=== PATIENT | female | born 1935 | race Caucasian/White ===

== ENCOUNTER 2017-04-08 13:53 | Inpatient (IN) | payer OTHER, MEDICARE ==
[2017-04-08 14:04] VITALS: BMI 20.1
--- NOTE | 2017-04-08 14:28 | PDOC ---
Attending Attestation - Resident Resident Name: Christina Boothe - ED Attending Attestation I have performed the following: I have examined & evaluated the patient, The case was reviewed & discussed with the resident, I agree w/resident's findings & plan, Exceptions are as noted
[2017-04-08] MEDS ORDERED: ACETAMINOPHEN 325 MG TABLET (FP) PO ONE (14:29)
--- NOTE | 2017-04-08 14:37 | PDOC ---
History of Present Illness - General History Source: Patient Exam Limitations: No Limitations - History of Present Illness Initial Comments: 04/08/17 15:00 The patient is a 82 year old female, with a significant past medical history of hypertension and hyperlipidemia, who presents to the emergency department s/p mechanical fall earlier today. As per family who witnessed fall, patient lost her footing and fell to the ground. Patient endorses immediate left leg pain, and inability to walk or stand on her own. Patient reports her pain is exacerbated when bearing weight on her left leg/ She denies any head trauma, LOC , headache, changes in vision, dizziness, or lightheadedness. She denies any chest pain, shortness of breath, diaphoresis, or palpitations. She denies any fever or chills. She denies any abdominal pain, nausea, vomiting, or changes in bowel/bladder habits. No recent travel or sick contacts. Allergies: NKDA Past Surgical History: None reported Social History: Non smoker. No ETOH or recreational drug use. PCP: Dr. Lees <Carlos Manuel Morocho - Last Filed: 04/08/17 15:00> <Beatriz Pond - Last Filed: 04/10/17 07:28> - General Chief Complaint: Injury Stated Complaint: FALL Time Seen by Provider: 04/08/17 14:04 Past History <Carlos Manuel Morocho - Last Filed: 04/08/17 15:00> - Past Medical History CVA: No COPD: No DVT: No Dementia: Yes HTN: Yes Hypercholesterolemia: Yes - Immunization History Immunization Up to Date: Yes - Suicide/Smoking/Psychosocial Hx Smoking History: Never smoked Information on smoking cessation initiated: No Hx Alcohol Use: No Drug/Substance Use Hx: No Substance Use Type: None <Beatriz Pond - Last Filed: 04/10/17 07:28> - Past Medical History Allergies/Adverse Reactions: Allergies Allergy/AdvReac Type Severity Reaction Status Date / Time No Known Allergies Allergy Verified 04/08/17 14:04 Home Medications: Ambulatory Orders Aspirin [ASA -] 81 mg PO DAILY 01/28/15 Atorvastatin Ca [Lipitor -] 20 mg PO HS 01/28/15 Donepezil HCl [Aricept -] 10 mg PO DAILY 01/28/15 Ramipril [Altace] 2.5 mg PO DAILY 01/28/15 Review of Systems - Review of Systems Able to Perform ROS?: Yes Comments:: 04/08/17 15:01 GENERAL/CONSTITUTIONAL: No fever or chills. No weakness. HEAD, EYES, EARS, NOSE AND THROAT: No change in vision. No ear pain or discharge. No sore throat. CARDIOVASCULAR: No chest pain or shortness of breath. RESPIRATORY: No cough, wheezing, or hemoptysis. GASTROINTESTINAL: No nausea, vomiting, diarrhea or constipation. GENITOURINARY: No dysuria, frequency, or change in urination. MUSCULOSKELETAL: +Left leg pain. No joint or muscle swelling. No neck or back pain. SKIN: No rash NEUROLOGIC: +Difficulty ambulating. No headache, vertigo, loss of consciousness. ENDOCRINE: No increased thirst. No abnormal weight change. HEMATOLOGIC/LYMPHATIC: No anemia, easy bleeding, or history of blood clots. ALLERGIC/IMMUNOLOGIC: No hives or skin allergy. <Carlos Manuel Morocho - Last Filed: 04/08/17 15:00> *Physical Exam - Vital Signs Last Vital Signs Temp Pulse Resp BP Pulse Ox 97.9 F 75 19 158/86 98 04/08/17 14:01 04/08/17 14:01 04/08/17 14:01 04/08/17 14:01 04/08/17 14:01 <Carlos Manuel Morocho - Last Filed: 04/08/17 15:00> - Vital Signs Last Vital Signs Temp Pulse Resp BP Pulse Ox 97.9 F 75 19 158/86 98 04/08/17 14:01 04/08/17 14:01 04/08/17 14:01 04/08/17 14:01 04/08/17 14:01 - Physical Exam Comments: GENERAL: Awake, alert, and fully oriented, in no acute distress HEAD: No signs of trauma EYES: PERRLA, EOMI, sclera anicteric, conjunctiva clear ENT: Auricles normal inspection, hearing grossly normal, nares patent, oropharynx clear without exudates. Moist mucosa NECK: Normal ROM, supple, no lymphadenopathy, JVD, or masses LUNGS: Breath sounds equal, clear to auscultation bilaterally. No wheezes, and no crackles HEART: Regular rate and rhythm, normal S1 and S2, no murmurs, rubs or gallops ABDOMEN: Soft, nontender, normoactive bowel sounds. No guarding, no rebound. No masses EXTREMITIES: LLE shortened and externally rotated. +Tenderness over L hip. Remainder of extremities with normal range of motion, no edema. No clubbing or cyanosis. No cords, erythema, or tenderness NEUROLOGICAL: Cranial nerves II through XII grossly intact. Normal speech, normal gait SKIN: Warm, Dry, normal turgor, no rashes or lesions noted. <Beatriz Pond - Last Filed: 04/10/17 07:28> ED Treatment Course - LABORATORY CBC & Chemistry Diagram: 04/09/17 11:25 04/09/17 07:00 <Beatriz Pond - Last Filed: 04/10/17 07:28> Medical Decision Making - Medical Decision Making 04/08/17 15:51 Exam suspicious for L hip fx. Given morphine for pain prior to getting her completely undressed to fully evaluate. Awaiting XR. 04/08/17 16:39 XR reviewed. Case d/w Dr. Man, in ED for a consult. Will evaluate. 04/08/17 16:[address] Parr at shift change. Patient is ready for admission and I have sent microblog to hospitalist, however, family is currently contacting the PMD to discuss whether they want to stay or be transferred. There is no medical necessity for transfer, however, they may want it for preference. <eBatriz Pond - Last Filed: 04/10/17 07:28> *DC/Admit/Observation/Transfer - Attestations Scribe Attestion: 04/08/17 15:02 Documentation prepared by Carlos Manuel Morocho, acting as medical cash poster for Beatriz Pond MD. <Carlos Manuel Morocho - Last Filed: 04/08/17 15:00> <Beatriz Pond - Last Filed: 04/10/17 07:28> Diagnosis at time of Disposition: Hip fracture - Discharge Dispostion Condition at time of disposition: Stable
[2017-04-08] MEDS ORDERED: morphine CARPU-JECT 2 MG/1 ML DISP.SYRIN IVPUSH ONE (14:47)
[2017-04-08] MEDS ORDERED: MORPHINE SULFATE 10 MG/1 ML *VIAL ONE (14:55)
[2017-04-08 15:35] LABS: BASO % 0.3 % (0-2.0); EOS % 0.2 % (0-4.5); HEMATOCRIT 40.3 % (32.4-45.2); HEMOGLOBIN 13.5 GM/dL (10.7-15.3); LYMPH % 7.8 % (8-40); MCHC 33.4 g/dl (32.0-36.0); MEAN PLT VOLUME 9.2 fl (7.5-11.1); MONO % 6.2 % (3.8-10.2); NEUT % 85.5 % (42.8-82.8); PLATELET COUNT 192 K/MM3 (134-434); RBC 4.48 M/mm3 (3.60-5.2); RDW 12.7 % (11.6-15.6); WHITE BLOOD COUNT 12.2 K/mm3 (4.0-10.0)
[2017-04-08 15:48] LABS: INR 1.07 (0.82-1.09); PROTHROMBIN TIME (PATIENT) 12.1 SEC (9.98-11.88)
[2017-04-08 15:57] LABS: ALBUMIN 3.8 g/dl (3.4-5.0); ANION GAP 7 (8-16); BLOOD UREA NITROGEN 24 mg/dL (7-18); CALCIUM 8.7 mg/dL (8.5-10.1); CHLORIDE 105 mmol/L (98-107); CO2 29 mmol/L (21-32); GLUCOSE,RANDOM 113 mg/dL (74-106); POTASSIUM 3.6 mmol/L (3.5-5.1); SODIUM 141 mmol/L (136-145)
[2017-04-08 16:01] LABS: ALK PHOS 65 U/L (45-117); BILIRUBIN,TOTAL 0.4 mg/dL (0.2-1.0); CREATININE 0.8 mg/dL (0.55-1.02); SGOT/AST 15 U/L (15-37); SGPT/ALT 16 U/L (12-78); TOT PROT 6.6 g/dl (6.4-8.2)
--- NOTE | 2017-04-08 18:12 | PDOC ---
*Physical Exam - Vital Signs Last Vital Signs Temp Pulse Resp BP Pulse Ox 97.9 F 75 19 158/86 98 04/08/17 14:01 04/08/17 14:01 04/08/17 14:01 04/08/17 14:01 04/08/17 14:01 ED Treatment Course - LABORATORY CBC & Chemistry Diagram: 04/08/17 15:07 04/08/17 15:07 - ADDITIONAL ORDERS Additional order review: Laboratory Results 04/08/17 04/08/17 04/08/17 15:07 15:07 15:07 PT with INR 12.10 H INR 1.07 Sodium 141 Potassium 3.6 Chloride 105 Carbon Dioxide 29 Anion Gap 7 L BUN 24 H Creatinine 0.8 Creat Clearance w eGFR > 60 Random Glucose 113 H Calcium 8.7 Total Bilirubin 0.4 AST 15 ALT 16 Alkaline Phosphatase 65 Total Protein 6.6 Albumin 3.8 Blood Type AB POSITIVE Antibody Screen Negative 04/08/17 15:07 RBC 4.48 MCV 90.0 MCHC 33.4 RDW 12.7 MPV 9.2 Neutrophils % 85.5 H Lymphocytes % 7.8 L Monocytes % 6.2 Eosinophils % 0.2 Basophils % 0.3 - Medications Given in the ED: ED Medications Discontinued Medications Generic Name Dose Route Start Last Admin Trade Name Freq PRN Reason Stop Dose Admin Morphine Sulfate 2 mg 04/08/17 14:47 04/08/17 15:00 Morphine Injection - IVPUSH 04/08/17 14:48 2 mg ONCE ONE Administration Medical Decision Making - Medical Decision Making 04/08/17 18:[address] Man, will be admitted for surgical repair of an intertrochanteric hip fracture tomorrow morning. She'll be NPO at Midnight. Redmond placed. Sign out given to Dr. Pressley from the medicine team, patient has been accepted for admission to Dr. Deluca's service. Case discussed in detail with admitting physician including history, physical exam and ancillary studies. Admitting physician has assumed care for the patient, will follow all pending diagnostics and will complete the evaluation and treatment. *DC/Admit/Observation/Transfer Diagnosis at time of Disposition: Hip fracture - Discharge Dispostion Condition at time of disposition: Stable Admit: Yes - Referrals Referrals: Richie Lees [Primary Care Provider] - - Patient Instructions - Post Discharge Activity - Attestations Physician Attestion: 04/08/17 18:11 I, Dr. Susanna Parr MD, attest that this document has been prepared under my direction and personally reviewed by me in its entirety. I further attest, that it accurately reflects all work, treatment, procedures and medical decision -making performed by me.
[2017-04-08 18:17] LABS: URINE APPEARANCE CLEAR; URINE BILIRUBIN NEGATIVE (NEGATIVE); URINE BLOOD NEGATIVE (NEGATIVE); URINE COLOR LTYELLOW; URINE GLUCOSE (UA) NEGATIVE (NEGATIVE); URINE KETONE TRACE (NEGATIVE); URINE LEUK ESTERASE NEGATIVE (NEGATIVE); URINE NITRITE NEGATIVE (NEGATIVE); URINE PROTEIN NEGATIVE (NEGATIVE); URINE UROBILINOGEN NEGATIVE mg/dL (0.2-1.0)
--- NOTE | 2017-04-08 21:14 | HP ---
<Gail Tavera - Last Filed: 04/08/17 21:16> CHIEF COMPLAINT: hip pain PCP: Dr Lees HISTORY OF PRESENT ILLNESS: The patient is a 82 year old female, with a significant past medical history of HTN, hyperlipidemia, Alzheimer's who presents to the emergency department s/p mechanical fall earlier today. As per patient, she was at grocery store when she slipped and fell to the ground. Patient started complaining of immediate left leg pain, and inability to walk or stand on her own. The pain is located in left hip, relieved with pain medications. The pt denies falls in the past. She denies any head trauma, LOC, headache, changes in vision, dizziness, or lightheadedness, chest pain, palpitations, feeling lightheaded before the accident. She denies any fever or chills. She denies any abdominal pain, nausea, vomiting, diarrhea, constipation. ER course was notable for: (1)x ray hip/pelvis and femur (2)CBC, BMP (3) PAST MEDICAL HISTORY: as above PAST SURGICAL HISTORY: none Social History: Smoking:denies Alcohol:denies Drugs:denies Family History: doesn't remember Allergies No Known Allergies Allergy (Verified 04/08/17 14:04) HOME MEDICATIONS: Home Medications Medication Instructions Recorded Aspirin [ASA -] 81 mg PO DAILY 01/28/15 Atorvastatin Ca [Lipitor -] 20 mg PO HS 01/28/15 Donepezil HCl [Aricept -] 10 mg PO DAILY 01/28/15 Ramipril [Altace] 2.5 mg PO DAILY 01/28/15 REVIEW OF SYSTEMS CONSTITUTIONAL: Absent: fever, chills, diaphoresis, generalized weakness, weight change HEENT: Absent: rhinorrhea, nasal congestion, throat pain, throat swelling, difficulty swallowing, mouth swelling, ear pain, eye pain, visual changes CARDIOVASCULAR: Absent: chest pain, syncope, palpitations, irregular heart rate, lightheadedness , peripheral edema RESPIRATORY: Absent: cough, shortness of breath, dyspnea with exertion, orthopnea, wheezing, GASTROINTESTINAL: Absent: abdominal pain, abdominal distension, nausea, vomiting, diarrhea, constipation, GENITOURINARY: Absent: dysuria, frequency, urgency MUSCULOSKELETAL: left hip pain Absent: myalgia, back pain, neck pain SKIN: Absent: rash, itching, pallor ENDOCRINE: Absent: unexplained weight gain, unexplained weight loss, NEUROLOGIC: Absent: headache, focal weakness or paresthesias, dizziness, unsteady gait, seizure, mental status changes, bladder or bowel incontinence PSYCHIATRIC: Absent: anxiety, depression, PHYSICAL EXAMINATION Vital Signs - 24 hr 04/08/17 14:01 Temperature 97.9 F Pulse Rate 75 Respiratory 19 Rate Blood Pressure 158/86 O2 Sat by Pulse 98 Oximetry (%) GENERAL: Awake, alert, and fully oriented, in no acute distress, lying in bed. HEAD: Normal with no signs of trauma. EYES: Pupils equal, round and reactive to light, extraocular movements intact, sclera anicteric, conjunctiva clear. EARS, NOSE, THROAT: Ears normal, nares patent, oropharynx clear without exudates. Moist mucous membranes. NECK: Normal range of motion, supple without lymphadenopathy, JVD, or masses. LUNGS: Breath sounds equal, clear to auscultation bilaterally. No wheezes, and no crackles. No accessory muscle use. HEART: Regular rate and rhythm, normal S1 and S2 without murmur, rub or gallop. ABDOMEN: Soft, nontender, not distended, normoactive bowel sounds, no guarding, no rebound, no masses. No hepatomegaly or splenomegaly. MUSCULOSKELETAL: Normal range of motion at all joints with the exception to left hip that she is unable to flex due to pain. Tenderness to palpation over left hip, swelling present. UPPER EXTREMITIES: 2+ pulses, warm, no cyanosis. No clubbing. No peripheral edema. LOWER EXTREMITIES: 2+ pulses, warm. No peripheral edema. NEUROLOGICAL: Normal speech, no facial asymmetry, sensation to light touch intact, motor in upper extremities 5/5, RLE 5/5, LLE not assessed. LLE is shortened. PSYCHIATRIC: Cooperative. Good eye contact. Appropriate mood and affect. SKIN: Warm, dry, normal turgor, no rashes or lesions noted. Laboratory Results - last 24 hr 04/08/17 04/08/17 04/08/17 15:07 15:07 15:07 WBC 12.2 H RBC 4.48 Hgb 13.5 Hct 40.3 MCV 90.0 MCH 30.0 MCHC 33.4 RDW 12.7 Plt Count 192 MPV 9.2 Neutrophils % 85.5 H Lymphocytes % 7.8 L Monocytes % 6.2 Eosinophils % 0.2 Basophils % 0.3 PT with INR 12.10 H INR 1.07 Sodium 141 Potassium 3.6 Chloride 105 Carbon Dioxide 29 Anion Gap 7 L BUN 24 H Creatinine 0.8 Creat Clearance w eGFR > 60 Random Glucose 113 H Calcium 8.7 Total Bilirubin 0.4 AST 15 ALT 16 Alkaline Phosphatase 65 Total Protein 6.6 Albumin 3.8 Urine Color Urine Appearance Urine pH Ur Specific [place] Urine Protein Urine Glucose (UA) Urine Ketones Urine Blood Urine Nitrite Urine Bilirubin Urine Urobilinogen Ur Leukocyte Esterase Blood Type Antibody Screen 04/08/17 04/08/17 15:07 18:07 WBC RBC Hgb Hct MCV MCH MCHC RDW Plt Count MPV Neutrophils % Lymphocytes % Monocytes % Eosinophils % Basophils % PT with INR INR Sodium Potassium Chloride Carbon Dioxide Anion Gap BUN Creatinine Creat Clearance w eGFR Random Glucose Calcium Total Bilirubin AST ALT Alkaline Phosphatase Total Protein Albumin Urine Color Ltyellow Urine Appearance Clear Urine pH 7.0 Ur Specific [place] 1.014 Urine Protein Negative Urine Glucose (UA) Negative Urine Ketones Trace H Urine Blood Negative Urine Nitrite Negative Urine Bilirubin Negative Urine Urobilinogen Negative Ur Leukocyte Esterase Negative Blood Type AB POSITIVE Antibody Screen Negative ASSESSMENT/PLAN: The patient is a 82 year old female, with a significant past medical history of HTN, hyperlipidemia, Alzheimer's who presents to the emergency department s/p mechanical fall earlier today. She is admitted to med surg and scheduled to be operated on 04/09/17. s/p mechanical fall: -Dr Man-orthopedic surgeon consulted -type and screen -coags -NPO after midnight -no ambulating -Redmond cath inserted HTN; -will resume her Ramipril HLD: cont Lipitor Alzheimers: -cont Aricept DVT PPX: -scds Disposition: med surg, hip surgery tomorrow Problem List - Problem (1) HTN (hypertension) Code(s): I10 - ESSENTIAL (PRIMARY) HYPERTENSION (2) HLD (hyperlipidemia) Code(s): E78.5 - HYPERLIPIDEMIA, UNSPECIFIED (3) Alzheimer disease Code(s): G30.9 - ALZHEIMER'S DISEASE, UNSPECIFIED; F02.80 - DEMENTIA IN OTH DISEASES CLASSD ELSWHR W/O BEHAVRL DISTURB (4) Hip fracture Code(s): S72.009A - FRACTURE OF UNSP PART OF NECK OF UNSP FEMUR, INIT Visit type - Emergency Visit Emergency Visit: Yes ED Registration Date: 04/08/17 Care time: The patient presented to the Emergency Department on the above date and was hospitalized for further evaluation of their emergent condition. - New Patient This patient is new to me today: Yes Date on this admission: 04/08/17 - Critical Care Critical Care patient: No <Gila Deluca - Last Filed: 04/08/17 23:29> Vital Signs Temperature 97.9 F 04/08/17 14:01 Pulse Rate 79 04/08/17 21:12 Respiratory Rate 18 04/08/17 21:12 Blood Pressure 153/88 04/08/17 21:12 O2 Sat by Pulse Oximetry (%) 100 04/08/17 21:12 CBCD WBC 12.2 K/mm3 (4.0-10.0) H 04/08/17 15:07 RBC 4.48 M/mm3 (3.60-5.2) 04/08/17 15:07 Hgb 13.5 GM/dL (10.7-15.3) 04/08/17 15:07 Hct 40.3 % (32.4-45.2) 04/08/17 15:07 MCV 90.0 fl (80-96) 04/08/17 15:07 MCHC 33.4 g/dl (32.0-36.0) 04/08/17 15:07 RDW 12.7 % (11.6-15.6) 04/08/17 15:07 Plt Count 192 K/MM3 (134-434) 04/08/17 15:07 MPV 9.2 fl (7.5-11.1) 04/08/17 15:07 CMP Sodium 141 mmol/L (136-145) 04/08/17 15:07 Potassium 3.6 mmol/L (3.5-5.1) 04/08/17 15:07 Chloride 105 mmol/L (98-107) 04/08/17 15:07 Carbon Dioxide 29 mmol/L (21-32) 04/08/17 15:07 Anion Gap 7 (8-16) L 04/08/17 15:07 BUN 24 mg/dL (7-18) H 04/08/17 15:07 Creatinine 0.8 mg/dL (0.55-1.02) 04/08/17 15:07 Creat Clearance w eGFR > 60 (>60) 04/08/17 15:07 Random Glucose 113 mg/dL (74-106) H 04/08/17 15:07 Calcium 8.7 mg/dL (8.5-10.1) 04/08/17 15:07 Total Bilirubin 0.4 mg/dL (0.2-1.0) 04/08/17 15:07 AST 15 U/L (15-37) 04/08/17 15:07 ALT 16 U/L (12-78) 04/08/17 15:07 Alkaline Phosphatase 65 U/L (45-117) 04/08/17 15:07 Total Protein 6.6 g/dl (6.4-8.2) 04/08/17 15:07 Albumin 3.8 g/dl (3.4-5.0) 04/08/17 15:07 Current Medications Generic Name Dose Route Start Last Admin Trade Name Freq PRN Reason Stop Dose Admin Acetaminophen 1,000 mg 04/08/17 21:15 Ofirmev Injection - IVPB Q6H PRN PAIN LEVEL 4 - 6 Atorvastatin Calcium 20 mg 04/09/17 22:00 Lipitor - PO HS IVA Donepezil HCl 10 mg 04/09/17 10:00 Aricept - PO DAILY IVA Ramipril 2.5 mg 04/09/17 10:00 Altace - PO DAILY IVA
[2017-04-08] MEDS ORDERED: ACETAMINOPHEN 1000 MG/100 ML VIAL (NON FORMULARY) IVPB PRN (21:15)
[2017-04-09] MEDS ORDERED: ONDANSETRON 4 MG/2 ML VIAL IVPUSH PRN (08:16)
[2017-04-09] MEDS ORDERED: PROMETHAZINE HCL 25 MG/1 ML VIAL IVPUSH PRN (08:16)
[2017-04-09 08:27] LABS: INR 1.13 (0.82-1.09); PROTHROMBIN TIME (PATIENT) 12.8 SEC (9.98-11.88)
[2017-04-09 08:29] LABS: ACTIVATED PTT 26.9 SECONDS (26.9-34.4)
[2017-04-09] MEDS ORDERED: LACTATED RINGERS SOLUTION 1,000 ML IV SCH (08:30)
[2017-04-09 08:35] LABS: HEMATOCRIT 36.1 % (32.4-45.2); HEMOGLOBIN 11.9 GM/dL (10.7-15.3); MCH 29.5 pg (25.7-33.7); MCHC 33.1 g/dl (32.0-36.0); MEAN CELL VOLUME 89.4 fl (80-96); PLATELET COUNT 172 K/MM3 (134-434); RBC 4.04 M/mm3 (3.60-5.2); RDW 12.9 % (11.6-15.6); WHITE BLOOD COUNT 13.2 K/mm3 (4.0-10.0)
[2017-04-09 09:31] LABS: ANION GAP 8 (8-16); BLOOD UREA NITROGEN 24 mg/dL (7-18); CALCIUM 8.2 mg/dL (8.5-10.1); CHLORIDE 105 mmol/L (98-107); CO2 28 mmol/L (21-32); CREATININE 0.8 mg/dL (0.55-1.02); GLUCOSE,RANDOM 112 mg/dL (74-106); MAGNESIUM 2.3 mg/dL (1.8-2.4); PHOSPHOROUS 3.1 mg/dL (2.5-4.9); POTASSIUM 3.8 mmol/L (3.5-5.1); SODIUM 141 mmol/L (136-145)
[2017-04-09] MEDS ORDERED: DONEPEZIL HCL 10 MG TABLET (FP) PO SCH (10:00)
[2017-04-09] MEDS ORDERED: RAMIPRIL 2.5 MG CAPSULE (FP) PO SCH (10:00)
[2017-04-09] MEDS ORDERED: BUPIVACAINE HCL/PF 0.5% (5MG/ML) 10 ML VIAL ONE (10:02)
[2017-04-09] MEDS ORDERED: ceFAZolin SODIUM 1 GM VIAL IVPB ONE ×2 (10:04)
[2017-04-09] MEDS ORDERED: MIDAZOLAM HCL 2 MG/2 ML SINGLE DOSE VIAL ONE (11:02)
--- NOTE | 2017-04-09 11:34 | OP ---
Operative Note - Note: Operative Date: 04/09/17 Pre-Operative Diagnosis: left IT fx Operation: left hip intramedullary nail Implants: [employer] gamma 3 system 130 degree short nail w 90 mm proximal lag screw and 32.5mm distal locking screw Surgeon: Delio Man Anesthesiologist/ED TECH: Wojciech Curiel Anesthesia: Spinal Estimated Blood Loss (mls): 50 Operative Report Dictated: Yes
[2017-04-09] MEDS ORDERED: ACETAMINOPHEN 1000 MG/100 ML VIAL (NON FORMULARY) IVPB PRN (12:01)
--- NOTE | 2017-04-09 12:15 | EKG ---
Test Reason : Blood Pressure : / mmHG Vent. Rate : 071 BPM Atrial Rate : 071 BPM P-R Int : 184 ms QRS Dur : 084 ms QT Int : 442 ms P-R-T Axes : 050 -08 041 degrees QTc Int : 480 ms NORMAL SINUS RHYTHM MINIMAL VOLTAGE CRITERIA FOR LVH, MAY BE NORMAL VARIANT NONSPECIFIC T WAVE ABNORMALITY PROLONGED QT ABNORMAL ECG WHEN COMPARED WITH ECG OF 22-APR-2000 09:55, VENT. RATE HAS DECREASED BY 39 BPM NONSPECIFIC T WAVE ABNORMALITY NOW EVIDENT IN INFERIOR LEADS NONSPECIFIC T WAVE ABNORMALITY, WORSE IN ANTEROLATERAL LEADS Confirmed by LENI DIAZ MD ([id number]) on 04/09/2017 12:14:35 PM Referred By: Confirmed By:LENI DIAZ MD
[2017-04-09 13:00] LABS: BASO % 0.3 % (0-2.0); HEMATOCRIT 30.7 % (32.4-45.2); HEMOGLOBIN 9.9 GM/dL (10.7-15.3); MCHC 32.3 g/dl (32.0-36.0); MEAN CELL VOLUME 89.9 fl (80-96); MEAN PLT VOLUME 9.4 fl (7.5-11.1); MONO % 8.1 % (3.8-10.2); NEUT % 86.6 % (42.8-82.8); PLATELET COUNT 146 K/MM3 (134-434); RBC 3.41 M/mm3 (3.60-5.2); RDW 12.6 % (11.6-15.6); WHITE BLOOD COUNT 18.4 K/mm3 (4.0-10.0)
--- NOTE | 2017-04-09 14:18 | CONS ---
DATE OF CONSULTATION: 04/08/2017 CHIEF COMPLAINT: Left hip injury. HISTORY OF PRESENT ILLNESS: This is a pleasant 82-year-old woman who suffered a fall. She landed on her left side. She was complaining of left hip pain afterwards. She denies any loss of consciousness. She denies any dizziness or syncopal symptoms. She is here with her daughter and her . She denies any pain elsewhere. PAST MEDICAL HISTORY: Significant for hypertension, hyperlipidemia, early Alzheimer's. MEDICATIONS: Reviewed as in chart. PAST SURGICAL HISTORY: Denies. SOCIAL HISTORY: No alcohol or tobacco. FAMILY HISTORY: Noncontributory. ALLERGIES: No known drug allergies. REVIEW OF SYMPTOMS: Negative for any fever, chills, nausea, vomiting, night sweats, nasal congestion, throat pain, throat swelling, palpitations, lightheadedness, peripheral edema. No shortness of breath, no dyspnea on exertion, no orthopnea, no abdominal pain or distension. No dysuria, frequency, or urgency. PHYSICAL EXAMINATION: General: This is an elderly female in no acute distress. She is alert and oriented x3. She is a little bit forgetful in the conversation. Extremities: Examination of the left lower extremity demonstrates it is short and externally rotated. Displaced sensation is intact to light touch. 2+ DP pulse, EHL, FHL, tibialis anterior, gastrocnemius, and soleus are intact. Knee is nontender. The ankle is nontender. RADIOGRAPHS: Radiographs reviewed demonstrating a mildly displaced intertrochanteric left hip fracture. ASSESSMENT: Left intertrochanteric hip fracture. PLAN: I reviewed todays findings with the patient as well as her family. We discussed that there is a hip fracture present. I reviewed that generally this is treated operatively. We discussed the option of nonoperative management, prolonged bed rest, loss of ambulatory ability, potential for bed sores, pneumonia, DVT. We reviewed operative management. This would involvement placing an intramedullary nail. I reviewed the surgical risks including bleeding, infection, neurovascular injury, need for further surgery, postoperative pain and stiffness, nonunion, malunion, hardware failure or cutup. We discussed medical risks such as heart attack, stroke, DVT, PE, and . We discussed the use of perioperative antibiotic and DVT prophylaxis. I addressed all the patients and her familys questions. They voiced understanding and are looking to proceed. She will be brought to the operating room tomorrow morning. NELSY LARA M.D. TATA/[id number]
[2017-04-09] MEDS: DOCUSATE SODIUM 100 MG CAPSULE (FP) PO SCH ×2 (15:17→21:42)
--- NOTE | 2017-04-09 17:30 | HOSP ---
Subjective - Review of Symptoms Events since last encounter: 82F with PMH of HTN, hyperlipidemia, Alzheimer's who presents to the emergency department s/p mechanical fall, admitted for ortho surgical repair of hip. Pt had ortho surgery this morning with Dr. Man to repair the Left hip. Pt got out of bed to use the bathroom. Nurse Aid saw pt fall backward and land on her bottom. Pt denies actually hitting the floor, reports she caught herself on the bed. Pt denies pain anywhere, no pain to Left hip/bottom/back/ chest/head. Pt had not received any blood thinners during this hospital admission. PE: General: AAOx3, mildly anxious Respiratory: CTAB CV: RRR, no murmurs appreciated GI: soft, nondistended, nontender NEURO: muscle strength 5/5 x 4 extremities, sensation intact and symmetric throughout MS: Left hip with 2 surgical dressings CDI. No crepitus or deformity appreciated Fall Protocol 1 order set entered Head CT non-con ordered Ortho Surgeon (Dr. Man) called by nursing -> Stat Left hip xray ordered Primary Provider notified. Physical Examination Vital Signs: Vital Signs Temperature 98.4 F 04/09/17 14:56 Pulse Rate 77 04/09/17 14:56 Respiratory Rate 18 04/09/17 14:56 Blood Pressure 120/83 04/09/17 14:56 O2 Sat by Pulse Oximetry (%) 98 04/09/17 14:56 Labs: CBC, BMP 04/09/17 11:25 04/09/17 07:00 Visit type - Emergency Visit Emergency Visit: Yes ED Registration Date: 04/08/17 Care time: The patient presented to the Emergency Department on the above date and was hospitalized for further evaluation of their emergent condition. - New Patient This patient is new to me today: Yes Date on this admission: 04/09/17 - Critical Care Critical Care patient: No
[2017-04-09] MEDS: CEFAZOLIN 1 GM PUSH 1 GM/10 ML DISP.SYRIN IVPUSH SCH (18:08)
[2017-04-09] MEDS: ATORVASTATIN CA 20 MG TABLET (FP) PO SCH (21:42)
[2017-04-09] MEDS: CALCIUM 500MG/VIT-D 200 UNITS COMBO TABLET (FP) PO SCH (21:42)
[2017-04-09] MEDS ORDERED: ATORVASTATIN CA 20 MG TABLET (FP) PO SCH (22:00)
--- NOTE | 2017-04-09 22:17 | PN ---
Physical Exam: SUBJECTIVE: Patient seen and examined Patient wants to walk to the bathroom, doesn't like the bedpan. Otherwise has no pain. OBJECTIVE: Vital Signs Temperature 98.4 F 04/09/17 14:56 Pulse Rate 80 04/09/17 17:11 Respiratory Rate 20 04/09/17 19:28 Blood Pressure 153/80 04/09/17 17:11 O2 Sat by Pulse Oximetry (%) 98 04/09/17 20:03 GENERAL: The patient is awake, alert, and fully oriented, in no acute distress. HEAD: Normal with no signs of trauma. EYES: PERRL, extraocular movements intact, sclera anicteric, conjunctiva clear. ENT: Ears normal, oropharynx clear without exudates, moist mucous membranes. NECK: Trachea midline, full range of motion, supple. LUNGS: Breath sounds equal, clear to auscultation bilaterally, no wheezes, no crackles, no accessory muscle use. HEART: Regular rate and rhythm, S1, S2 without murmur, rub or gallop. ABDOMEN: Soft, nontender, nondistended, normoactive bowel sounds, no guarding, no rebound, no hepatosplenomegaly, no masses. EXTREMITIES: 2+ pulses, warm, well-perfused, no edema. s/p L IT fx s/p sx NEUROLOGICAL: Cranial nerves II through XII grossly intact. Normal speech, gait not observed. SKIN: Warm, dry, normal turgor, no rashes or lesions noted CBCD WBC 18.4 K/mm3 (4.0-10.0) H D 04/09/17 11:25 RBC 3.41 M/mm3 (3.60-5.2) L 04/09/17 11:25 Hgb 9.9 GM/dL (10.7-15.3) L D 04/09/17 11:25 Hct 30.7 % (32.4-45.2) L 04/09/17 11:25 MCV 89.9 fl (80-96) 04/09/17 11:25 MCHC 32.3 g/dl (32.0-36.0) 04/09/17 11:25 RDW 12.6 % (11.6-15.6) 04/09/17 11:25 Plt Count 146 K/MM3 (134-434) 04/09/17 11:25 MPV 9.4 fl (7.5-11.1) 04/09/17 11:25 CMP Sodium 141 mmol/L (136-145) 04/09/17 07:00 Potassium 3.8 mmol/L (3.5-5.1) 04/09/17 07:00 Chloride 105 mmol/L (98-107) 04/09/17 07:00 Carbon Dioxide 28 mmol/L (21-32) 04/09/17 07:00 Anion Gap 8 (8-16) 04/09/17 07:00 BUN 24 mg/dL (7-18) H 04/09/17 07:00 Creatinine 0.8 mg/dL (0.55-1.02) 04/09/17 07:00 Creat Clearance w eGFR > 60 (>60) 04/08/17 15:07 Random Glucose 112 mg/dL (74-106) H 04/09/17 07:00 Calcium 8.2 mg/dL (8.5-10.1) L 04/09/17 07:00 Total Bilirubin 0.4 mg/dL (0.2-1.0) 04/08/17 15:07 AST 15 U/L (15-37) 04/08/17 15:07 ALT 16 U/L (12-78) 04/08/17 15:07 Alkaline Phosphatase 65 U/L (45-117) 04/08/17 15:07 Total Protein 6.6 g/dl (6.4-8.2) 04/08/17 15:07 Albumin 3.8 g/dl (3.4-5.0) 04/08/17 15:07 Current Medications Generic Name Dose Route Start Last Admin Trade Name Freq PRN Reason Stop Dose Admin Acetaminophen 1,000 mg 04/09/17 12:01 Ofirmev Injection - IVPB Q6H PRN PAIN LEVEL 4 - 6 Atorvastatin Calcium 20 mg 04/09/17 22:00 04/09/17 21:42 Lipitor - PO 20 mg HS IVA Administration Calcium Carbonate/Cholecalciferol 1 tab 04/09/17 22:00 04/09/17 21:42 Os-Gilberto 500+D - PO 1 tab BID IVA Administration Docusate Sodium 100 mg 04/09/17 14:00 04/09/17 21:42 Colace - PO 100 mg TID IVA Administration Donepezil HCl 10 mg 04/10/17 10:00 Aricept - PO DAILY IVA Enoxaparin Sodium 40 mg 04/10/17 10:00 Lovenox - SQ DAILY IVA Cefazolin Sodium 1 gm in 10 mls @ 100 mls/hr 04/09/17 18:00 04/09/17 18:08 Ancef - IVPUSH 04/10/17 17:59 100 mls/hr Q8H-IV IVA Administration Ramipril 2.5 mg 04/10/17 10:00 Altace - PO DAILY [facility] Home Medications Medication Instructions Recorded Aspirin [ASA -] 81 mg PO DAILY 01/28/15 Atorvastatin Ca [Lipitor -] 20 mg PO HS 01/28/15 Donepezil HCl [Aricept -] 10 mg PO DAILY 01/28/15 Ramipril [Altace] 2.5 mg PO DAILY 01/28/15 A/P: The patient is a 82 year old female, with a significant past medical history of HTN, hyperlipidemia, Alzheimer's who presents to the emergency department s/p mechanical fall . # POD #0 left IT fx s/p left hip intramedullary nail, surgey was done by #HTN: will resume her Ramipril #HLD: cont Lipitor #Alzheimers:cont Aricept DVT PPX: scds Visit type - Emergency Visit Emergency Visit: Yes ED Registration Date: 04/08/17 Care time: The patient presented to the Emergency Department on the above date and was hospitalized for further evaluation of their emergent condition. - New Patient This patient is new to me today: No - Critical Care Critical Care patient: No - Discharge Referral Referred to [facility] Med P.C.: No
[2017-04-10] MEDS: CEFAZOLIN 1 GM PUSH 1 GM/10 ML DISP.SYRIN IVPUSH SCH ×2 (01:02→10:05)
[2017-04-10] MEDS: DOCUSATE SODIUM 100 MG CAPSULE (FP) PO SCH ×3 (05:56→22:13)
--- NOTE | 2017-04-10 07:50 | PN ---
<Nicolás Rogers - Last Filed: 04/10/17 18:44> Physical Exam: SUBJECTIVE: Patient seen and examined at bedside. doing well , denies any pain , fever, chills, N/V/D/C. OBJECTIVE: Vital Signs Period Temp Pulse Resp BP Sys/Carlin Pulse Ox Last 24 Hr 97.6 F-99.2 F 54-98 18-20 102-154/46-83 98-100 GENERAL: The patient is awake, alert, and fully oriented, in no acute distress. HEAD: Normal with no signs of trauma. EYES: sclera anicteric, conjunctiva clear. ENT: moist mucous membranes. NECK: full range of motion, supple. LUNGS: Breath sounds equal, clear to auscultation bilaterally, no wheezes, no crackles, no accessory muscle use. HEART: Regular rate and rhythm, S1, S2 without murmur, rub or gallop. ABDOMEN: Soft, nontender, nondistended, normoactive bowel sounds, EXTREMITIES: 2+ pulses, warm, well-perfused, no edema.LE dressings CDI, sensation intact NEUROLOGICAL: No focal deficit . Normal speech, gait not observed. PSYCH: Normal mood, normal affect. SKIN: Warm, dry, Laboratory Results - last 24 hr 04/09/17 04/09/17 04/09/17 07:00 07:00 07:00 WBC 13.2 H RBC 4.04 Hgb 11.9 D Hct 36.1 MCV 89.4 MCH 29.5 MCHC 33.1 RDW 12.9 Plt Count 172 MPV 9.0 Neutrophils % Lymphocytes % Monocytes % Eosinophils % Basophils % PT with INR 12.80 H INR 1.13 PTT (Actin FS) 26.9 Sodium 141 Potassium 3.8 Chloride 105 Carbon Dioxide 28 Anion Gap 8 BUN 24 H Creatinine 0.8 Random Glucose 112 H Calcium 8.2 L Phosphorus 3.1 Magnesium 2.3 Blood Type Antibody Screen 04/09/17 04/09/17 07:00 11:25 WBC 18.4 H D RBC 3.41 L Hgb 9.9 L D Hct 30.7 L MCV 89.9 MCH 29.0 MCHC 32.3 RDW 12.6 Plt Count 146 MPV 9.4 Neutrophils % 86.6 H Lymphocytes % 5.0 L D Monocytes % 8.1 Eosinophils % 0.0 D Basophils % 0.3 PT with INR INR PTT (Actin FS) Sodium Potassium Chloride Carbon Dioxide Anion Gap BUN Creatinine Random Glucose Calcium Phosphorus Magnesium Blood Type AB POSITIVE Antibody Screen Negative Active Medications Generic Name Dose Route Start Last Admin Trade Name Michelle PRN Reason Stop Dose Admin Acetaminophen 1,000 mg 04/09/17 12:01 Ofirmev Injection - IVPB Q6H PRN PAIN LEVEL 4 - 6 Atorvastatin Calcium 20 mg 04/09/17 22:00 04/09/17 21:42 Lipitor - PO 20 mg HS IVA Administration Calcium Carbonate/Cholecalciferol 1 tab 04/09/17 22:00 04/09/17 21:42 Os-Gilberto 500+D - PO 1 tab BID IVA Administration Docusate Sodium 100 mg 04/09/17 14:00 04/10/17 05:56 Colace - PO 100 mg TID IVA Administration Donepezil HCl 10 mg 04/10/17 10:00 Aricept - PO DAILY IVA Enoxaparin Sodium 40 mg 04/10/17 10:00 Lovenox - SQ DAILY IVA Cefazolin Sodium 1 gm in 10 mls @ 100 mls/hr 04/09/17 18:00 04/10/17 01:02 Ancef - IVPUSH 04/10/17 17:59 100 mls/hr Q8H-IV IVA Administration Ramipril 2.5 mg 04/10/17 10:00 Altace - PO DAILY IVA ASSESSMENT/PLAN: The patient is a 82 year old female, with a significant past medical history of HTN, hyperlipidemia, Alzheimer's who presents to the emergency department s/p mechanical fall . She was admitted to med-surg and scheduled to be operated on . #s/p mechanical fall: * POD# 1, s/p Jaskaran Nail under spinal.with no anesthesia complications * Head CT negative for acute pathology * Hip xray : No loss of fixation or new fractures. * regular diet * no ambulating * maintain [place] cath * Tylenol for pain * PT * Fall precautions * avoid narcotics * F/U CBC #HTN; * will resume her Ramipril 2.5 mg Po daily #HLD: * cont Lipitor 20 mg PO HS # Constipation * contiue colace 100 mg po TID #Alzheimers: * cont Aricept 10 mg po daily DVT PPX: * Moderate risk ,scds , continue lovenox 40 mg SQ daily Visit type - Emergency Visit Emergency Visit: Yes ED Registration Date: 04/08/17 Care time: The patient presented to the Emergency Department on the above date and was hospitalized for further evaluation of their emergent condition. - New Patient This patient is new to me today: Yes Date on this admission: 04/10/17 - Critical Care Critical Care patient: No <Gila Deluca - Last Filed: 04/11/17 13:31> Physical Exam: Patient seen and examined, agree with the resident's note. Family at bedside. No obvious injury, patient has no complains, denies any pain or any complications.
[2017-04-10] MEDS: RAMIPRIL 2.5 MG CAPSULE (FP) PO SCH (10:10)
[2017-04-10] MEDS: DONEPEZIL HCL 10 MG TABLET (FP) PO SCH (10:11)
[2017-04-10] MEDS: CALCIUM 500MG/VIT-D 200 UNITS COMBO TABLET (FP) PO SCH ×2 (10:11→22:13)
[2017-04-10] MEDS: ENOXAPARIN NA (PORCINE) 40 MG/0.4 ML DISP.SYRIN SQ SCH (10:11)
--- NOTE | 2017-04-10 13:18 | PN ---
Progress Note (short form) - Note Progress Note: Pt lying comf in bed. No complaints. Attempted to get out of bed unassisted last night and had fall. Hip films reviewed. No loss of fixation or new fractures. Last Vital Signs Temp Pulse Resp BP Pulse Ox 100.1 F H 100 H 20 130/65 98 04/10/17 09:29 04/10/17 09:29 04/10/17 09:29 04/10/17 09:29 04/09/17 20:03 LLE dressings CDI calves soft NT ehl fhl ta g s intact sens int to LT 2+ dp A/p: L hip IM nail POD 1 -patient appears to have no residual injury from her fall yesterday, official head CT read pending -PT -wbat -reviewed fall precautions with patient and family -finish post op abx -avoid narcotics -cbc ordered
--- NOTE | 2017-04-10 14:19 | PN ---
Progress Note, Physician Chief Complaint: Pt. resting comfortably. No anesthesia complaints. - Current Medication List Current Medications: Active Medications Acetaminophen (Ofirmev Injection -) 1,000 mg IVPB Q6H PRN PRN Reason: PAIN LEVEL 4 - 6 Last Admin: 04/10/17 10:04 Dose: 1,000 mg Atorvastatin Calcium (Lipitor -) 20 mg PO HS [facility] Last Admin: 04/09/17 21:42 Dose: 20 mg Calcium Carbonate/Cholecalciferol (Os-Gilberto 500+D -) 1 tab PO BID [facility] Last Admin: 04/10/17 10:11 Dose: 1 tab Docusate Sodium (Colace -) 100 mg PO TID [facility] Last Admin: 04/10/17 05:56 Dose: 100 mg Donepezil HCl (Aricept -) 10 mg PO DAILY [facility] Last Admin: 04/10/17 10:11 Dose: 10 mg Enoxaparin Sodium (Lovenox -) 40 mg SQ DAILY [facility] Last Admin: 04/10/17 10:11 Dose: 40 mg Cefazolin Sodium (Ancef -) 1 gm in 10 mls @ 100 mls/hr IVPUSH Q8H-IV [facility] Stop: 04/10/17 17:59 Last Admin: 04/10/17 10:05 Dose: 100 mls/hr Ramipril (Altace -) 2.5 mg PO DAILY [facility] Last Admin: 04/10/17 10:10 Dose: 2.5 mg - Objective Vital Signs: Vital Signs Temperature 98.9 F 04/10/17 13:11 Pulse Rate 80 04/10/17 13:11 Respiratory Rate 20 04/10/17 13:11 Blood Pressure 120/83 04/10/17 13:11 O2 Sat by Pulse Oximetry (%) 98 04/10/17 09:00 Constitutional: Yes: Well Nourished, No Distress, Calm Neurological: Yes: WNL, Alert, Oriented ...Motor Strength: WNL Labs: CBC, BMP 04/09/17 11:25 04/09/17 07:00 INR, PTT INR 1.13 (0.82-1.09) 04/09/17 07:00 Assessment/Plan POD#1 s/p Jaskaran Nail under spinal. Doing well. D/C from anesthesia care.
--- NOTE | 2017-04-10 15:12 | OP ---
DATE OF OPERATION: 04/09/2017 PREOPERATIVE DIAGNOSIS: Left intertrochanteric hip fracture. POSTOPERATIVE DIAGNOSIS: Left intertrochanteric hip fracture. PROCEDURE: Left hip intramedullary nail. SURGEON: Delio Man MD ANESTHESIA: Wojciech Curiel MD ANESTHESIA TYPE: Spinal. POSTOPERATIVE CONDITION: Stable. COMPLICATIONS: None. BLOOD LOSS: 50 mL. IMPLANTS: Alexandrea gamma nail 130 degree x 130 mm, 90 mm proximal lag screw. INDICATIONS: This is a pleasant 82-year-old female who had suffered a trip and fall. She was found to have an intertrochanteric hip fracture. Treatment options including nonoperative versus operative management were reviewed. Operative management was highly recommended. Operative risks were reviewed in detail including bleeding, infection, neurovascular injury, need for further surgery, postoperative pain and stiffness, nonunion, malunion, hardware cutout or failure. We discussed medical risks such as heart attack, stroke, DVT, PE, and . We discussed the use of perioperative antibiotics as well as perioperative DVT prophylaxis. We reviewed the rehabilitation from the procedure. I addressed all the patient's and her family's questions. They voiced understanding and elected to proceed. PROCEDURE: The patient was brought to the operating room, where spinal anesthesia was administered. The patient was placed onto the fracture table, careful to pad all the bony prominences. The left lower extremity was then placed into a position of adduction, traction, in internal rotation mildly so to keep the patella pointing straight towards the ceiling. A preoperative fluoroscopy image confirmed satisfactory reduction in both the AP and lateral planes. The patient was now prepped and draped in the usual sterile fashion. A preoperative dose of antibiotics was given and the usual timeout procedure was performed. An incision was now planned out just proximal to the greater trochanter. This was made in a stab wound fashion. The guidewire was now placed down onto the tip of the greater trochanter as visualized in AP and lateral fluoroscopy. The guidewire was now advanced down to the level of the lesser trochanter in the femoral canal. The incision was now expanded about the guidewire just distally. A soft tissue protector was slid in and an opening reamer was used to create a corticotomy on to top of the femur. The reamer was passed down to the level of the lesser trochanter. The reamer was then removed along with the guidewire. The nail was now chosen to be 130 mm nail based on preoperative templating of the contralateral side. The nail was inserted down into the canal. Nail placement was confirmed fluoroscopically. The guidepin was now placed by first inserting a trocar through a small incision laterally down to the level of the bone. Guidepin was drilled through the center of the femoral neck into the center of the femoral head. Guidepin placement was confirmed fluoroscopically in 2 planes. The guidepin was now measured and a 90-mm proximal lag screw was chosen. This was then overreamed to a depth of 80 mm. The lag screw was now inserted and lag screw placement was confirmed fluoroscopically in 2 plains. The set screw was now inserted all the way down and then backed off a quarter turn to allow for compression. The fracture was then compressed along the jig. The guidewire and trocar were now removed. Now the distal locking screw was placed into the static position for the jig. Again, a small incision was made and the trocar was inserted down to the level of the femur. The distal lag screw was chosen and a 32.5-mm screw was inserted. At this point, the entire construct was examined fluoroscopically and both fracture reduction and hardware placement were satisfactory. The wounds were copiously irrigated. The fascia was repaired using 0 Vicryl. The subcutaneous tissue was repaired using 2-0 Vicryl. The skin was repaired using 3-0 nylon. Sterile dressings were placed. The patient was then transferred to recovery room in stable condition. Holly VILLAR/[id number]
[2017-04-10 15:34] LABS: BASO % 0.3 % (0-2.0); HEMATOCRIT 28.8 % (32.4-45.2); HEMOGLOBIN 9.7 GM/dL (10.7-15.3); LYMPH % 6.3 % (8-40); MCH 30.1 pg (25.7-33.7); MCHC 33.6 g/dl (32.0-36.0); MEAN CELL VOLUME 89.7 fl (80-96); MEAN PLT VOLUME 9.8 fl (7.5-11.1); MONO % 9.4 % (3.8-10.2); PLATELET COUNT 159 K/MM3 (134-434); RBC 3.21 M/mm3 (3.60-5.2); RDW 12.7 % (11.6-15.6); WHITE BLOOD COUNT 13.9 K/mm3 (4.0-10.0)
[2017-04-10] MEDS: ATORVASTATIN CA 20 MG TABLET (FP) PO SCH (22:13)
[2017-04-11] MEDS: DOCUSATE SODIUM 100 MG CAPSULE (FP) PO SCH ×3 (06:04→21:12)
[2017-04-11 08:28] LABS: HEMATOCRIT 27.5 % (32.4-45.2); HEMOGLOBIN 9.1 GM/dL (10.7-15.3); MCH 29.8 pg (25.7-33.7); MCHC 33.3 g/dl (32.0-36.0); MEAN CELL VOLUME 89.7 fl (80-96); MEAN PLT VOLUME 9.2 fl (7.5-11.1); PLATELET COUNT 142 K/MM3 (134-434); RBC 3.07 M/mm3 (3.60-5.2); RDW 12.6 % (11.6-15.6); WHITE BLOOD COUNT 12.8 K/mm3 (4.0-10.0)
[2017-04-11 08:56] LABS: CHLORIDE 105 mmol/L (98-107); POTASSIUM 3.9 mmol/L (3.5-5.1); SODIUM 140 mmol/L (136-145)
[2017-04-11 09:01] LABS: ALBUMIN 2.7 g/dl (3.4-5.0); ALK PHOS 51 U/L (45-117); ANION GAP 5 (8-16); BILIRUBIN,TOTAL 0.8 mg/dL (0.2-1.0); BLOOD UREA NITROGEN 22 mg/dL (7-18); CO2 30 mmol/L (21-32); CREATININE 0.8 mg/dL (0.55-1.02); GLUCOSE,RANDOM 113 mg/dL (74-106); SGOT/AST 25 U/L (15-37); SGPT/ALT 13 U/L (12-78); TOT PROT 5.3 g/dl (6.4-8.2)
[2017-04-11] MEDS ORDERED: PT OWN MED DRAWER 7, Y5N ONE (09:40)
[2017-04-11] MEDS: RAMIPRIL 2.5 MG CAPSULE (FP) PO SCH (09:51)
[2017-04-11] MEDS: DONEPEZIL HCL 10 MG TABLET (FP) PO SCH (09:51)
[2017-04-11] MEDS: CALCIUM 500MG/VIT-D 200 UNITS COMBO TABLET (FP) PO SCH ×2 (09:51→21:13)
[2017-04-11] MEDS: ENOXAPARIN NA (PORCINE) 40 MG/0.4 ML DISP.SYRIN SQ SCH (09:51)
--- NOTE | 2017-04-11 13:46 | PN ---
Progress Note (short form) - Note Progress Note: Patient is comfortable with no acute distress. Vital Signs Temperature 99.6 F 04/11/17 09:00 Pulse Rate 82 04/11/17 09:00 Respiratory Rate 20 04/11/17 09:00 Blood Pressure 123/64 04/11/17 09:00 O2 Sat by Pulse Oximetry (%) 97 04/11/17 09:00 GENERAL: The patient is awake, alert, and fully oriented, in no acute distress. HEAD: Normal with no signs of trauma. EYES: PERRL, extraocular movements intact, sclera anicteric, conjunctiva clear. ENT: Ears normal, oropharynx clear without exudates, moist mucous membranes. NECK: Trachea midline, full range of motion, supple. LUNGS: Breath sounds equal, clear to auscultation bilaterally, no wheezes, no crackles, no accessory muscle use. HEART: Regular rate and rhythm, S1, S2 without murmur, rub or gallop. ABDOMEN: Soft, nontender, nondistended, normoactive bowel sounds, no guarding, no rebound, no hepatosplenomegaly, no masses. EXTREMITIES: 2+ pulses, warm, well-perfused, no edema. s/p L IT fx s/p sx NEUROLOGICAL: Cranial nerves II through XII grossly intact. Normal speech, gait not observed. SKIN: Warm, dry, normal turgor, no rashes or lesions noted CBCD WBC 12.8 K/mm3 (4.0-10.0) H 04/11/17 08:10 RBC 3.07 M/mm3 (3.60-5.2) L 04/11/17 08:10 Hgb 9.1 GM/dL (10.7-15.3) L 04/11/17 08:10 Hct 27.5 % (32.4-45.2) L 04/11/17 08:10 MCV 89.7 fl (80-96) 04/11/17 08:10 MCHC 33.3 g/dl (32.0-36.0) 04/11/17 08:10 RDW 12.6 % (11.6-15.6) 04/11/17 08:10 Plt Count 142 K/MM3 (134-434) 04/11/17 08:10 MPV 9.2 fl (7.5-11.1) 04/11/17 08:10 CMP Sodium 140 mmol/L (136-145) 04/11/17 08:10 Potassium 3.9 mmol/L (3.5-5.1) 04/11/17 08:10 Chloride 105 mmol/L (98-107) 04/11/17 08:10 Carbon Dioxide 30 mmol/L (21-32) 04/11/17 08:10 Anion Gap 5 (8-16) L 04/11/17 08:10 BUN 22 mg/dL (7-18) H 04/11/17 08:10 Creatinine 0.8 mg/dL (0.55-1.02) 04/11/17 08:10 Creat Clearance w eGFR > 60 (>60) 04/11/17 08:10 Random Glucose 113 mg/dL (74-106) H 04/11/17 08:10 Calcium 8.0 mg/dL (8.5-10.1) L 04/11/17 08:10 Total Bilirubin 0.8 mg/dL (0.2-1.0) D 04/11/17 08:10 AST 25 U/L (15-37) 04/11/17 08:10 ALT 13 U/L (12-78) 04/11/17 08:10 Alkaline Phosphatase 51 U/L (45-117) 04/11/17 08:10 Total Protein 5.3 g/dl (6.4-8.2) L 04/11/17 08:10 Albumin 2.7 g/dl (3.4-5.0) L 04/11/17 08:10 Current Medications Generic Name Dose Route Start Last Admin Trade Name Michelle PRN Reason Stop Dose Admin Acetaminophen 1,000 mg 04/09/17 12:01 04/10/17 10:04 Ofirmev Injection - IVPB 1,000 mg Q6H PRN Administration PAIN LEVEL 4 - 6 Atorvastatin Calcium 20 mg 04/09/17 22:00 04/10/17 22:13 Lipitor - PO 20 mg HS IVA Administration Calcium Carbonate/Cholecalciferol 1 tab 04/09/17 22:00 04/11/17 09:51 Os-Gilberto 500+D - PO 1 tab BID IVA Administration Docusate Sodium 100 mg 04/09/17 14:00 04/11/17 06:04 Colace - PO 100 mg TID IVA Administration Donepezil HCl 10 mg 04/10/17 10:00 04/11/17 09:51 Aricept - PO 10 mg DAILY IVA Administration Enoxaparin Sodium 40 mg 04/10/17 10:00 04/11/17 09:51 Lovenox - SQ 40 mg DAILY IVA Administration Ramipril 2.5 mg 04/10/17 10:00 04/11/17 09:51 Altace - PO 2.5 mg DAILY IVA Administration Home Medications Medication Instructions Recorded Aspirin [ASA -] 81 mg PO DAILY 01/28/15 Atorvastatin Ca [Lipitor -] 20 mg PO HS 01/28/15 Donepezil HCl [Aricept -] 10 mg PO DAILY 01/28/15 Ramipril [Altace] 2.5 mg PO DAILY 01/28/15 A/P: The patient is a 82 year old female, with a significant past medical history of HTN, hyperlipidemia, Alzheimer's who presents to the emergency department s/p mechanical fall . # POD #2 left IT fx s/p left hip intramedullary nail, surgey was done by #HTN: will resume her Ramipril #HLD: cont Lipitor #Alzheimers:cont Aricept DVT PPX: scds possible dc to rehab in am , waiting for approval Visit type - Emergency Visit Emergency Visit: Yes ED Registration Date: 04/08/17 Care time: The patient presented to the Emergency Department on the above date and was hospitalized for further evaluation of their emergent condition. - New Patient This patient is new to me today: No - Critical Care Critical Care patient: No - Discharge Referral Referred to [facility] Med P.C.: No
--- NOTE | 2017-04-11 17:37 | PN ---
Progress Note (short form) - Note Progress Note: Pt lying comf in bed. No complaints. [place] dizzy and sweaty during PT today so it was aborted. Last Vital Signs Temp Pulse Resp BP Pulse Ox 98.9 F 81 20 109/64 97 04/11/17 15:05 04/11/17 15:05 04/11/17 09:00 04/11/17 15:05 04/11/17 09:00 LLE dressings CDI calves soft NT ehl fhl ta g s intact sens int to LT 2+ dp Abnormal Lab Results 04/11/17 04/11/17 08:10 08:10 WBC 12.8 H RBC 3.07 L Hgb 9.1 L Hct 27.5 L Anion Gap 5 L BUN 22 H Random Glucose 113 H Calcium 8.0 L Total Protein 5.3 L Albumin 2.7 L A/p: L hip IM nail POD 2 -pt appears well overall -believe that dizzyness secondary to post op anemia, possible dehydration and prolonged bedrest -continue PT/OOB-> chair -wbat -dispo planning -pain control w/o narcotics
[2017-04-11] MEDS: ATORVASTATIN CA 20 MG TABLET (FP) PO SCH (21:13)
[2017-04-12] MEDS: DOCUSATE SODIUM 100 MG CAPSULE (FP) PO SCH ×2 (05:40→14:39)
[2017-04-12 08:28] LABS: BASO % 0.7 % (0-2.0); EOS % 0.9 % (0-4.5); HEMOGLOBIN 8.8 GM/dL (10.7-15.3); LYMPH % 13.1 % (8-40); MCH 30.2 pg (25.7-33.7); MCHC 33.9 g/dl (32.0-36.0); MEAN CELL VOLUME 89.1 fl (80-96); MEAN PLT VOLUME 8.7 fl (7.5-11.1); NEUT % 76.3 % (42.8-82.8); PLATELET COUNT 160 K/MM3 (134-434); RBC 2.92 M/mm3 (3.60-5.2); RDW 12.8 % (11.6-15.6); WHITE BLOOD COUNT 10.5 K/mm3 (4.0-10.0)
[2017-04-12] MEDS: ENOXAPARIN NA (PORCINE) 40 MG/0.4 ML DISP.SYRIN SQ SCH (08:59)
[2017-04-12] MEDS: CALCIUM 500MG/VIT-D 200 UNITS COMBO TABLET (FP) PO SCH (08:59)
[2017-04-12] MEDS: DONEPEZIL HCL 10 MG TABLET (FP) PO SCH (08:59)
[2017-04-12] MEDS: RAMIPRIL 2.5 MG CAPSULE (FP) PO SCH (09:00)
--- NOTE | 2017-04-12 13:23 | DS ---
Physical Exam: SUBJECTIVE: Patient seen and examined at [facility]. no acute events over night. denies any fever, chills, N/V/D/C. denies any pain, numbness or tingling in LE. OBJECTIVE: Vital Signs Period Temp Pulse Resp BP Sys/Carlin Pulse Ox Last 24 Hr 97.8 F-98.9 F 70-83 18-20 109-140/64-76 97-97 PHYSICAL EXAM GENERAL: The patient is awake, alert, and fully oriented, in no acute distress. HEAD: Normal with no signs of trauma. EYES: sclera anicteric, conjunctiva clear. ENT: moist mucous membranes. NECK: full range of motion, supple. LUNGS: Breath sounds equal, clear to auscultation bilaterally, no wheezes, no crackles, no accessory muscle use. HEART: Regular rate and rhythm, S1, S2 without murmur, rub or gallop. ABDOMEN: Soft, nontender, nondistended, normoactive bowel sounds, EXTREMITIES: 2+ pulses, warm, well-perfused, no edema, sensation intact NEUROLOGICAL: No focal deficit . Normal speech, gait not observed. PSYCH: Normal mood, normal affect. SKIN: Warm, dry, LABS Laboratory Results - last 24 hr 04/12/17 07:45 WBC 10.5 H RBC 2.92 L Hgb 8.8 L Hct 26.0 L MCV 89.1 MCH 30.2 MCHC 33.9 RDW 12.8 Plt Count 160 MPV 8.7 Neutrophils % 76.3 Lymphocytes % 13.1 D Monocytes % 9.0 Eosinophils % 0.9 D Basophils % 0.7 CBC, BMP 04/12/17 07:45 04/11/17 08:10 CT head : negative for acute pathology. Hip Xray : left femoral fx stabilized with hardware. HOSPITAL COURSE: Date of Admission:04/08/17 Date of Discharge: 04/12/17 The patient is an 82 yo F, PMH of HTN, HLD and Alzheimer's, who presented to ED s/p mechanical fall. She was found to have L hip fracture and underwent left IT fx with left hip intramedullary nail by . Procedure was w/o complications and patient was discharged to rehab on POD 3 on Lovenox. Patient instructed to follow up with orthopedic surgery regarding duration of anticoagulation and physical therapy for HTN she will resume her Ramipril 2.5 mg Po daily,for HLD cont Lipitor 20 mg PO HS she will start using colace 100 mg po TID for constipation ,for Alzheimers:she will resume Aricept 10 mg po daily. Minutes to complete discharge: 40 <Nicolás Rogers - Last Filed: 04/12/17 14:32> Physical Exam: Patient seen and examined, patient is being discharged to rehab. Vital Signs Temperature 96.8 F L 04/12/17 14:52 Pulse Rate 88 04/12/17 14:52 Respiratory Rate 18 04/12/17 09:00 Blood Pressure 114/67 04/12/17 14:52 O2 Sat by Pulse Oximetry (%) 97 04/12/17 09:00 CBCD WBC 10.5 K/mm3 (4.0-10.0) H 04/12/17 07:45 RBC 2.92 M/mm3 (3.60-5.2) L 04/12/17 07:45 Hgb 8.8 GM/dL (10.7-15.3) L 04/12/17 07:45 Hct 26.0 % (32.4-45.2) L 04/12/17 07:45 MCV 89.1 fl (80-96) 04/12/17 07:45 MCHC 33.9 g/dl (32.0-36.0) 04/12/17 07:45 RDW 12.8 % (11.6-15.6) 04/12/17 07:45 Plt Count 160 K/MM3 (134-434) 04/12/17 07:45 MPV 8.7 fl (7.5-11.1) 04/12/17 07:45 CMP Sodium 140 mmol/L (136-145) 04/11/17 08:10 Potassium 3.9 mmol/L (3.5-5.1) 04/11/17 08:10 Chloride 105 mmol/L (98-107) 04/11/17 08:10 Carbon Dioxide 30 mmol/L (21-32) 04/11/17 08:10 Anion Gap 5 (8-16) L 04/11/17 08:10 BUN 22 mg/dL (7-18) H 04/11/17 08:10 Creatinine 0.8 mg/dL (0.55-1.02) 04/11/17 08:10 Creat Clearance w eGFR > 60 (>60) 04/11/17 08:10 Random Glucose 113 mg/dL (74-106) H 04/11/17 08:10 Calcium 8.0 mg/dL (8.5-10.1) L 04/11/17 08:10 Total Bilirubin 0.8 mg/dL (0.2-1.0) D 04/11/17 08:10 AST 25 U/L (15-37) 04/11/17 08:10 ALT 13 U/L (12-78) 04/11/17 08:10 Alkaline Phosphatase 51 U/L (45-117) 04/11/17 08:10 Total Protein 5.3 g/dl (6.4-8.2) L 04/11/17 08:10 Albumin 2.7 g/dl (3.4-5.0) L 04/11/17 08:10 Home Medications Medication Instructions Recorded Aspirin [ASA -] 81 mg PO DAILY 01/28/15 Atorvastatin Ca [Lipitor] 20 mg PO HS 01/28/15 Donepezil HCl [Aricept -] 10 mg PO DAILY 01/28/15 Ramipril [Altace] 2.5 mg PO DAILY 01/28/15 Calcium 500Mg/Vit-D 200 Units 1 tab PO BID tab 04/12/17 [Os-Allie 500+D -] Docusate Sodium [Colace -] 100 mg PO TID #30 capsule 04/12/17 Enoxaparin [Lovenox -] 40 mg SQ DAILY #30 disp.syrin 04/12/17 <Gila Deluca - Last Filed: 04/12/17 19:27> Discharge Summary Reason For Visit: FRACTURE OF HIP Current Active Problems Alzheimer disease (Chronic) Displaced intertrochanteric fracture of left femur, initial encounter for closed fracture (Chronic) HLD (hyperlipidemia) (Chronic) HTN (hypertension) (Chronic) - Home Medications Comprehensive Discharge Medication List: Ambulatory Orders Aspirin [ASA -] 81 mg PO DAILY 01/28/15 Atorvastatin Ca [Lipitor] 20 mg PO HS 01/28/15 Donepezil HCl [Aricept -] 10 mg PO DAILY 01/28/15 Ramipril [Altace] 2.5 mg PO DAILY 01/28/15 Calcium 500Mg/Vit-D 200 Units [Os-Lalie 500+D -] 1 tab PO BID tab 04/12/17 Docusate Sodium [Colace -] 100 mg PO TID #30 capsule 04/12/17 Enoxaparin [Lovenox -] 40 mg SQ DAILY #30 disp.syrin 04/12/17 <Nicolás Rogers - Last Filed: 04/12/17 14:32> - Home Medications Comprehensive Discharge Medication List: Ambulatory Orders Aspirin [ASA -] 81 mg PO DAILY 01/28/15 Atorvastatin Ca [Lipitor] 20 mg PO HS 01/28/15 Donepezil HCl [Aricept -] 10 mg PO DAILY 01/28/15 Ramipril [Altace] 2.5 mg PO DAILY 01/28/15 Calcium 500Mg/Vit-D 200 Units [Os-Allie 500+D -] 1 tab PO BID tab 04/12/17 Docusate Sodium [Colace -] 100 mg PO TID #30 capsule 04/12/17 Enoxaparin [Lovenox -] 40 mg SQ DAILY #30 disp.syrin 04/12/17 <Gila Deluca - Last Filed: 04/12/17 19:27> Condition: Stable - Instructions Diet, Activity, Other Instructions: You were admitted to the hospital after you fell down and broke your hip, surgery was done by dr. Man (left hip intramedullary nail ). post operation day 3 . You will be transferred to rehab facility to strengthen your muscles Please follow fall precautions Please take your meds as prescribed before admission Yo will be start using Colace 100 mg daily as needed for constipation Please Lovenox injection subcutaneous daily(blood thinner) to prevent any clotting. if you develop fever, chills , or your symptoms worsen allie 911 or return to emergency room as soon as possible. Referrals: Richie Lees [Primary Care Provider] - 1 Week Disposition: [facility] This patient is new to me today: No Emergency Visit: Yes ED Registration Date: 04/08/17 Care time: The patient presented to the Emergency Department on the above date and was hospitalized for further evaluation of their emergent condition. Critical Care patient: No - Discharge Referral Referred to [facility] No <Nicolás Rogers - Last Filed: 04/12/17 14:32>
[2017-04-12 14:53] VITALS: BP 114/67; PULSE 88; TEMP 96.8
== END 2017-04-12 18:07 | DRG 482 ==
LOC: JER 13:53 → JERBED 18:12 → J6S 21:52
PROVIDERS: ADMIT Internal Medicine; ATTEND Internal Medicine
PROC: 0QS706Z Reposition Left Upper Femur with Intramedullary Internal Fixation Device, Open Approach (ICD-10-PCS; principal; 2017-04-09 08:30)
DX: S72.142A Displaced intertrochanteric fracture of left femur, initial encounter for closed fracture (principal); W19.XXXA Unspecified fall, initial encounter; Y93.9 Activity, unspecified; Y92.89 Other specified places as the place of occurrence of the external cause; Y99.9 Unspecified external cause status; G30.9 Alzheimer's disease, unspecified; F02.80 Dementia in other diseases classified elsewhere, unspecified severity, without behavioral disturbance, psychotic disturbance, mood disturbance, and anxiety; E78.5 Hyperlipidemia, unspecified; I10 Essential (primary) hypertension; K59.00 Constipation, unspecified
CPT/HCPCS: 36415; 70450-TC; 71045-TC-FY; 73502-TC-LT-FY; 73523-TC-FY; 73552-TC-LT-FY; 76000-TC-FY; 80048; 80053; 81003; 83735; 84100; 85025; 85027; 85610; 85730; 86850; 86900; 86901; 87086; 93005; 93010; 94010; 94760; 97116-GP; 97161-GP; 99285-25

== ENCOUNTER 2020-01-22 17:55 | Emergency (ER) | payer OTHER, MEDICARE ==
[2020-01-22 18:02] VITALS: BP 167/88; PULSE 103; TEMP 98.6; BMI 22.3
[2020-01-22] MEDS ORDERED: ACETAMINOPHEN 500 MG TABLET (FP) ONE (18:40)
[2020-01-22] MEDS ORDERED: ACETAMINOPHEN 500 MG TABLET (FP) PO ONE (18:47)
== END 2020-01-22 20:05 | disposition home or self-care (01) ==
LOC: JERFT 17:55
DX: S01.81XA Laceration without foreign body of other part of head, initial encounter (principal); W19.XXXA Unspecified fall, initial encounter
CPT/HCPCS: 70450-TC; 99284-25